=== PATIENT | male | born 1985 | race Two or more races ===

== ENCOUNTER 2018-05-27 19:16 | Emergency (ER) | payer OTHER, BC | END 2018-05-27 21:01 | disposition home or self-care (01) | LOC: JERFT 19:16 ==

== ENCOUNTER 2021-06-07 06:32 | Emergency (ER) | payer OTHER ==
[2021-06-07 06:56] VITALS: BMI 31.1
[2021-06-07] MEDS ORDERED: ACETAMINOPHEN 500 MG TABLET (FP) PO ONE (07:53)
[2021-06-07] MEDS ORDERED: ACETAMINOPHEN 325 MG TABLET (FP) ONE (08:30)
[2021-06-07 09:39] LABS: BASO % 0.4 % (0-2.0); EOS % 5.2 % (0-4.5); HEMATOCRIT 46.9 % (35.4-49); HEMOGLOBIN 16.2 GM/dL (11.7-16.9); LYMPH % 24.3 % (8-40); MCH 30.4 pg (25.7-33.7); MCHC 34.6 g/dl (32.0-35.9); MEAN CELL VOLUME 87.9 fl (80-96); MEAN PLT VOLUME 8.4 fl (7.5-11.1); MONO % 7.4 % (3.8-10.2); NEUT % 62.7 % (42.8-82.8); PLATELET COUNT 223 10^3/uL (134-434); RBC 5.34 M/mm3 (4.00-5.60); WHITE BLOOD COUNT 9.9 K/mm3 (4.0-10.0)
[2021-06-07 09:58] LABS: EPI CELLS 1 /uL (0-25.1); HYALINE CASTS 0 /uL (0-3.1); URINE APPEARANCE CLEAR; URINE BACTERIA 1 /uL (0-1359); URINE BILIRUBIN NEGATIVE (NEGATIVE); URINE COLOR YELLOW; URINE GLUCOSE (UA) NEGATIVE (NEGATIVE); URINE KETONE NEGATIVE (NEGATIVE); URINE LEUK ESTERASE NEGATIVE (NEGATIVE); URINE NITRITE NEGATIVE (NEGATIVE); URINE PROTEIN NEGATIVE (NEGATIVE); URINE RBC 1 /uL (0-23.9); URINE UROBILINOGEN 0.2 mg/dL (0.2-1.0); URINE WBC 2 /uL (0-25.8)
[2021-06-07 10:25] LABS: CALCIUM 9.4 mg/dL (8.5-10.1)
[2021-06-07 10:26] LABS: ALBUMIN 4.2 g/dl (3.4-5.0); BLOOD UREA NITROGEN 7.6 mg/dL (7-18)
[2021-06-07 10:29] LABS: CREATININE 1.2 mg/dL (0.55-1.3)
[2021-06-07 10:30] LABS: TOT PROT 7.6 g/dl (6.4-8.2)
[2021-06-07 10:31] LABS: BILIRUBIN,TOTAL 1.8 mg/dL (0.2-1)
[2021-06-07 11:34] VITALS: BP 105/67; PULSE 70; TEMP 97.6
== END 2021-06-07 11:41 | disposition home or self-care (01) ==
LOC: JER 06:32
DX: K80.50 Calculus of bile duct without cholangitis or cholecystitis without obstruction (principal)
CPT/HCPCS: 36415; 76705-TC; 80053; 81003; 83690; 85025; 87086; 93005; 93010; 99285-25